=== PATIENT | male | born 1985 | race Hispanic/Latino ===

== ENCOUNTER 2021-02-25 09:17 | Emergency (ER) | payer SELFPAY ==
[~2021-02-25] VITALS: Ht 167.6 cm; Wt 111.1 kg
[2021-02-25 09:51] LABS: APPEARANCE,URINE Clear (CLEAR); BILIRUBIN,URINE Negative (NEGATIVE); COLOR,URINE Yellow (YELLOW); GLUCOSE, URINE (UA) 500 mg/dL (NEGATIVE); KETONES,URINE Trace mg/dL (NEGATIVE); LEUKOCYTE ESTERASE ,URINE Negative (NEGATIVE); NITRATE,URINE Negative (NEGATIVE); OCCULT BLOOD,URINE Negative (NEGATIVE); PH,URINE 5.5 (5.0-8.0); PROTEIN,URINE Trace mg/dL (NEGATIVE)
[2021-02-25 10:00] LABS: BASOPHILS % (AUTO) 0.8 % (0.0-5.0); EOSINOPHILS % (AUTO) 1.6 % (0.0-8.0); HEMATOCRIT 43.8 % (42-54); LYMPHOCYTES % (AUTO) 24.9 % (21.0-51.0); MEAN CORPUSCULAR HEMOGLOBIN 28.7 pg (27.0-33.0); MEAN CORPUSCULAR HGB CONC 33.6 g/dL (32.0-36.0); MEAN CORPUSCULAR VOLUME 85.4 fL (79-99); MONOCYTES % (AUTO) 7.3 % (3.0-13.0); NEUTROPHILS % (AUTO) 65.1 % (40.0-77.0); PLATELET COUNT (AUTO) 211 K/uL (130-400); RED BLOOD CELL COUNT(AUTO) 5.13 MIL/uL (4.50-6.20); RED CELL DISTRIBUTION WIDTH 12.1 % (11.0-15.5); WHITE BLOOD COUNT (AUTO) 6.4 K/uL (4.8-10.8)
[2021-02-25 10:06] LABS: BACTERIA,URINE Rare /HPF (None Seen); RBC,URINE 0-1 /HPF (0-1); SQUAMOUS EPITHELIAL CELL,UR Rare /HPF (0-2); WBC,URINE 0-1 /HPF (0-1)
[2021-02-25 10:11] LABS: CREATININE 0.9 mg/dL (0.5-1.5)
[2021-02-25 10:16] LABS: ALBUMIN 4.1 g/dL (3.5-5.0); BILIRUBIN,TOTAL 0.4 mg/dL (0.2-1.0); TOTAL PROTEIN, SERUM 8.1 g/dL (6.0-8.3)
[2021-02-25] MEDS ORDERED: 0.9%NACL 1000ML 1,000 ML IV ONE (10:20)
[2021-02-25] MEDS ORDERED: TETRACAINE HCL 0.5% 4 ML OPHTH SOLN ONE (10:20)
[2021-02-25] MEDS ORDERED: KETOROLAC 30MG VIAL (30MG/ML) IV ONE (12:00)
[2021-02-25] MEDS ORDERED: METOCLOPRAMIDE 10 MG/2 ML VIAL IVP ONE (12:00)
[2021-02-25] MEDS ORDERED: DiphenhydrAMINE HCL 50 MG/ML VIAL IV ONE (12:00)
[2021-02-25] MEDS ORDERED: PROM25TA7 PO (13:33)
[2021-02-25] MEDS ORDERED: IBUP-2070 PO (13:33)
[2021-02-25 13:59] VITALS: BP 134/90
== END 2021-02-25 14:13 | disposition home or self-care (01) ==
LOC: EDH 09:17
DX: E11.65 Type 2 diabetes mellitus with hyperglycemia (principal); R51.9 Headache, unspecified; R03.0 Elevated blood-pressure reading, without diagnosis of hypertension
CPT/HCPCS: 36415; 70450; 80053; 81001; 85025; 96361; 96374; 96375; 99284; J1200; J1885; J2765; J7030

== ENCOUNTER 2022-01-08 15:08 | Emergency (ER) | payer OTHER ==
[~2022-01-08] VITALS: Ht 172.7 cm; Wt 113.4 kg
[~2022-01-08 15:08] MED LIST: IBUP-2070 PO; PROM25TA7 PO
[2022-01-08] MEDS ORDERED: LIDOCAINE HCL 1% 20 ML VIAL INJ SCH (15:30)
[2022-01-08] MEDS ORDERED: ACETAMINOPHEN WITH CODEINE 1 TAB TAB PO ONE (15:30)
[2022-01-08] MEDS ORDERED: CEPHALEXIN 500 MG CAPSULE PO ONE (15:30)
[2022-01-08] MEDS ORDERED: LIDOCAINE HCL-MPF 2% 10ML AMP IJ ONE (15:51)
[2022-01-08] MEDS ORDERED: TETANUS/DIPHTHERIA TOXOID [ADULT] 0.5 ML VIAL IM ONE (16:00)
[2022-01-08] MEDS ORDERED: ACET-2247 PO (16:27)
[2022-01-08] MEDS ORDERED: CEPH500B PO (16:27)
[2022-01-08 16:52] VITALS: BP 132/72
== END 2022-01-08 16:52 | disposition home or self-care (01) ==
LOC: EDH 15:08
DX: S91.201A Unspecified open wound of right great toe with damage to nail, initial encounter (principal); R03.0 Elevated blood-pressure reading, without diagnosis of hypertension; E66.01 Morbid (severe) obesity due to excess calories; Z68.38 Body mass index [BMI] 38.0-38.9, adult; X58.XXXA Exposure to other specified factors, initial encounter; Y93.89 Activity, other specified; Y92.89 Other specified places as the place of occurrence of the external cause; Y99.8 Other external cause status
CPT/HCPCS: 99284; 90714; 73660; 90471; 11730; J3490

== ENCOUNTER 2022-05-11 16:14 | Emergency (ER) | payer OTHER ==
[~2022-05-11] VITALS: Ht 172.7 cm; Wt 115.7 kg
[~2022-05-11 16:14] MED LIST changes: +ACET-2247 PO; +CEPH500B PO
[2022-05-11 16:15] VITALS: BP 156/112
[2022-05-11] MEDS ORDERED: ACETAMINOPHEN 500 MG TABLET ONE (17:56)
[2022-05-11] MEDS ORDERED: ACETAMINOPHEN 500 MG TABLET PO ONE (18:00)
[2022-05-11] MEDS ORDERED: PSEU120T62 PO (19:04)
[2022-05-11] MEDS ORDERED: OSEL75 PO (19:04)
[2022-05-11] MEDS ORDERED: IBUP-2070 PO (19:04)
[2022-05-11] MEDS ORDERED: ACET-66 PO (19:04)
[2022-05-11] MEDS ORDERED: PHEN118L19 PO (19:04)
[2022-05-11] MEDS ORDERED: IBUPROFEN 600 MG TABLET PO ONE (19:30)
[2022-05-11] MEDS ORDERED: OSELTAMIVIR PHOSPHATE 75 MG CAP PO ONE (19:30)
== END 2022-05-11 19:23 | disposition left against medical advice (07) ==
LOC: EDH 16:14
DX: J10.1 Influenza due to other identified influenza virus with other respiratory manifestations (principal); Z20.822 Contact with and (suspected) exposure to COVID-19; I10 Essential (primary) hypertension; E78.00 Pure hypercholesterolemia, unspecified; E11.9 Type 2 diabetes mellitus without complications; Z79.1 Long term (current) use of non-steroidal anti-inflammatories (NSAID); Z79.899 Other long term (current) drug therapy
CPT/HCPCS: 99284; 87635; 87804 ×2; C9803

== ENCOUNTER 2023-05-17 06:43 | Emergency (ER) | payer OTHER ==
[~2023-05-17] VITALS: Ht 172.7 cm; Wt 117.0 kg
[~2023-05-17 06:43] MED LIST changes: +ACET-66 PO; +OSEL75 PO; +PHEN118L19 PO; +PSEU120T62 PO
[2023-05-17 07:04] LABS: RAPID GROUP A STREP negative (NEGATIVE)
[2023-05-17 07:06] LABS: SARS-CoV-2, RNA, NAAT NEGATIVE SARS CoV-2 (NEGATIVE)
[2023-05-17 07:12] LABS: INFLUENZA TYPE A Negative For Type A (NEGATIVE); INFLUENZA TYPE B Negative For Type B (NEGATIVE)
[2023-05-17 07:18] LABS: BASOPHILS # (AUTO) 0.07 K/uL (0.00-0.20); BASOPHILS % (AUTO) 0.9 % (0.0-5.0); EOSINOPHILS # (AUTO) 0.14 K/uL (0.00-0.70); EOSINOPHILS % (AUTO) 1.8 % (0.0-8.0); HEMATOCRIT 43.4 % (42-54); IMMATURE GRANULOCYTE ABSOLUTE 0.02 K/uL (0-1); LYMPHOCYTES # (AUTO) 1.7 K/uL (1.0-4.8); LYMPHOCYTES % (AUTO) 21.9 % (21.0-51.0); MEAN CORPUSCULAR HEMOGLOBIN 28.8 pg (27.0-33.0); MEAN CORPUSCULAR HGB CONC 34.6 g/dL (32.0-36.0); MEAN CORPUSCULAR VOLUME 83.5 fL (79-99); MONOCYTES # (AUTO) 0.6 K/uL (0.1-1.0); NEUTROPHILS # (AUTO) 5.3 K/uL (1.8-7.7); NEUTROPHILS % (AUTO) 67.1 % (40.0-77.0); PLATELET COUNT (AUTO) 256 K/uL (130-400); RED CELL DISTRIBUTION WIDTH 12.1 % (11.0-15.5); WHITE BLOOD COUNT (AUTO) 7.9 K/uL (4.8-10.8)
[2023-05-17] MEDS ORDERED: ONDANSETRON 4MG INJ IVP ONE (07:30)
[2023-05-17] MEDS ORDERED: 0.9%NACL 1000ML 1,000 ML IV ONE (07:30)
[2023-05-17 07:31] LABS: ALBUMIN 3.9 g/dL (3.5-5.0); BILIRUBIN,TOTAL 0.5 mg/dL (0.2-1.0); CREATININE 0.8 mg/dL (0.5-1.5); POTASSIUM 3.6 mmol/L (3.5-5.1); TOTAL PROTEIN, SERUM 8.1 g/dL (6.0-8.3)
[2023-05-17] MEDS ORDERED: ONDA4TAB10 PO (08:53)
[2023-05-17 09:06] VITALS: BP 130/82; PULSE 76; RESP 18; O2SAT 98
== END 2023-05-17 09:06 | disposition home or self-care (01) ==
LOC: EDH 06:43
DX: J06.9 Acute upper respiratory infection, unspecified (principal); I10 Essential (primary) hypertension; E11.9 Type 2 diabetes mellitus without complications; E78.00 Pure hypercholesterolemia, unspecified; Z79.84 Long term (current) use of oral hypoglycemic drugs; Z79.899 Other long term (current) drug therapy; Z20.822 Contact with and (suspected) exposure to COVID-19
CPT/HCPCS: 99283; 96374; 87635; 96361; 80053; 85025; 87880; 87804 ×2; 36415; J7030; J2405

== ENCOUNTER 2023-07-23 05:39 | Emergency (ER) | payer OTHER ==
[~2023-07-23] VITALS: Ht 172.7 cm; Wt 115.7 kg
[~2023-07-23 05:39] MED LIST changes: +ONDA4TAB10 PO
[2023-07-23 05:41] VITALS: BP 148/100; PULSE 108; RESP 17
[2023-07-23 06:12] LABS: RAPID GROUP A STREP negative (NEGATIVE)
[2023-07-23 06:18] LABS: COVID19 (SARS ANTIGEN RAPID) PRESUMPTIVE NEGATIVE (NEGATIVE); INFLUENZA TYPE A Negative For Type A (NEGATIVE); INFLUENZA TYPE B Negative For Type B (NEGATIVE)
[2023-07-23 07:26] LABS: BASOPHILS # (AUTO) 0.06 K/uL (0.00-0.20); BASOPHILS % (AUTO) 0.6 % (0.0-5.0); EOSINOPHILS # (AUTO) 0.11 K/uL (0.00-0.70); EOSINOPHILS % (AUTO) 1.1 % (0.0-8.0); HEMATOCRIT 42.4 % (42-54); IMMATURE GRANULOCYTE ABSOLUTE 0.03 K/uL (0-1); LYMPHOCYTES % (AUTO) 19.2 % (21.0-51.0); MEAN CORPUSCULAR HEMOGLOBIN 28.8 pg (27.0-33.0); MEAN CORPUSCULAR HGB CONC 34.2 g/dL (32.0-36.0); MEAN CORPUSCULAR VOLUME 84.3 fL (79-99); MONOCYTES # (AUTO) 0.8 K/uL (0.1-1.0); MONOCYTES % (AUTO) 7.8 % (3.0-13.0); NEUTROPHILS # (AUTO) 7.3 K/uL (1.8-7.7); PLATELET COUNT (AUTO) 245 K/uL (130-400); RED BLOOD CELL COUNT(AUTO) 5.03 MIL/uL (4.50-6.20); RED CELL DISTRIBUTION WIDTH 12.3 % (11.0-15.5); WHITE BLOOD COUNT (AUTO) 10.3 K/uL (4.8-10.8)
[2023-07-23 07:34] LABS: CREATININE 0.8 mg/dL (0.5-1.3); POTASSIUM 3.8 mmol/L (3.5-5.1)
[2023-07-23 07:38] LABS: ALBUMIN 3.7 g/dL (3.5-5.0); BILIRUBIN,TOTAL 0.5 mg/dL (0.2-1.0); TOTAL PROTEIN, SERUM 8.2 g/dL (6.0-8.3)
[2023-07-23] MEDS: ONDANSETRON 4MG INJ IVP ONE (07:43)
[2023-07-23] MEDS: KETOROLAC 30MG VIAL (30MG/ML) IVP ONE (07:43)
[2023-07-23] MEDS: LACTATED RINGERS 1000ML 1,000 ML IV ONE (07:43)
[2023-07-23] MEDS: FAMOTIDINE 20MG VIAL IV ONE (09:02)
[2023-07-23] MEDS ORDERED: LOPE2TAB26 PO (09:17)
[2023-07-23] MEDS ORDERED: CIPR750T17 PO (09:17)
[2023-07-23] MEDS ORDERED: ONDA4TAB10 PO (09:17)
== END 2023-07-23 09:23 | disposition home or self-care (01) ==
LOC: EDH 05:39
DX: K52.9 Noninfective gastroenteritis and colitis, unspecified (principal); I10 Essential (primary) hypertension; E11.9 Type 2 diabetes mellitus without complications; E78.00 Pure hypercholesterolemia, unspecified; K21.9 Gastro-esophageal reflux disease without esophagitis; Z20.822 Contact with and (suspected) exposure to COVID-19; Z79.899 Other long term (current) drug therapy; Z88.8 Allergy status to other drugs, medicaments and biological substances
CPT/HCPCS: 99284; 96374; 96375; 87426; 82550; 80053; 83690; 85025; 87880; 87804 ×2; 83605; 36415; J7120; J3490; J2405; J1885